=== PATIENT | female | born 1960 | race American Indian/Alaskan Native ===

== ENCOUNTER 2018-09-19 01:58 | Emergency (ER) | payer MEDICAID ==
[2018-09-19 03:01] LABS: Basophils % (Auto) 0.6 % (0.0-1.8); Eosinophils # (Auto) 0.2 K/mm3 (0.0-0.4); Eosinophils % (Auto) 2.2 % (0.0-4.3); Hematocrit 42.2 % (30.3-42.9); Lymphocytes # (Auto) 2.3 K/mm3 (1.2-5.4); Lymphocytes % (Auto) 31.9 % (13.4-35.0); Mean Corpuscular HGB Conc 33 % (30-34); Mean Corpuscular Volume 83 fl (79-97); Monocytes # (Auto) 0.7 K/mm3 (0.0-0.8); Monocytes % (Auto) 9.3 % (0.0-7.3); Platelet Count 197 K/mm3 (140-440); Red Blood Count 5.08 M/mm3 (3.65-5.03)
[2018-09-19 03:16] LABS: Alanine Aminotransferase 25 units/L (7-56); Albumin 4.1 g/dL (3.9-5); BUN/Creatinine Ratio 24; Blood Urea Nitrogen 22 mg/dL (7-17); Calcium 9.7 mg/dL (8.4-10.2); Hemolysis Index 35
[2018-09-19 05:30] LABS: Bilirubin,Urine NEG (Negative); Blood,Urine SM (Negative); Color,Urine Yellow (Yellow); Urobilinogen,Urine < 2.0 mg/dL (<2.0)
[2018-09-19 05:31] LABS: Protein,Urine >500 mg/dL (Negative)
--- NOTE | 2018-09-19 06:09 | Cat Scan Report ---
CT of the abdomen and pelvis with contrast INDICATION: Right lower quadrant pain COMPARISON: None FINDINGS: There is slight basilar atelectasis. The liver, spleen, pancreas and right adrenal gland ar e normal. A 2 cm nodule in the left adrenal gland is probably a nonfunctioning adenoma. The right kid juanjose is normal but hypertrophied. The left kidney is atrophic although does function. Lower pole low d ensities on the left may be cysts. No definite gallbladder or biliary tree abnormality. No fluid or a denopathy in the upper abdomen. CT of the pelvis shows moderate sigmoid diverticulosis without diverticulitis. No uterine or adnexal masses. Appendix is seen and is normal. No hernia or bowel obstruction. No pelvic fluid or adenopathy . No significant skeletal lesion.. IMPRESSION: 1. No right lower quadrant abnormality. 2. Atrophic left kidney with left adrenal nodule. Automated exposure control was utilized to diminish radiation dose. Signer Name: Zev Gonzalez MD Signed: 09/19/2018 6:05 AM Workstation Name: [id number]
--- NOTE | 2018-09-19 06:27 | Emergency Department Report ---
HPI - General Chief Complaint: Abdominal Pain Time Seen by Provider: 09/19/18 06:03 - HPI HPI: 57-year-old -[place] female presents to the emergency department with the complaint of a few days of some right lower quadrant and right middle abdominal pain that she describes as a soreness. There is no radiation. It is associated with some nausea without vomiting. She denies any fever, dysuria, vaginal bleeding or discharge, urinary retention, diarrhea or constipation. She took some Pepto-Bismol 2 days ago and then took some Tylenol last night which did improve the pain slightly. She has a past medical history of rheumatoid arthritis, hypertension and gout. Her primary care physician is Dr. Delphine Salinas and she has an appointment in one week for a physical exam. No recent travel or sick contacts at home. ED Past Medical Hx - Past Medical History Previous Medical History?: Yes Hx Hypertension: Yes Hx Arthritis: Yes (RA) Additional medical history: Gout - Surgical History Past Surgical History?: Yes Additional Surgical History: C section x 2 - Social History Smoking Status: Never Smoker Substance Use Type: None ED Review of Systems ROS: Stated complaint: RIGHT SIDE PAIN Other details as noted in HPI Comment: All other systems reviewed and negative Constitutional: denies: chills, fever Eyes: denies: eye pain, vision change ENT: denies: ear pain, throat pain Respiratory: denies: cough, shortness of breath Cardiovascular: denies: chest pain, palpitations Gastrointestinal: abdominal pain, nausea. denies: vomiting Genitourinary: denies: dysuria, frequency Musculoskeletal: denies: back pain, arthralgia Skin: denies: rash, lesions Neurological: denies: headache, weakness Physical Exam - Physical Exam Vital Signs: Vital Signs 09/19/18 09/19/18 02:14 03:00 Temperature 99.3 F 98.4 F Pulse Rate 104 H 103 H Respiratory 18 21 Rate Blood Pressure 178/91 Blood Pressure 159/72 [Left] O2 Sat by Pulse 97 97 Oximetry Physical Exam: GENERAL: The patient is well-developed well-nourished. HENT: Normocephalic. Atraumatic. Patient has moist mucous membranes. EYES: Extraocular motions are intact. NECK: Supple. Trachea is midline. CHEST/LUNGS: Clear to auscultation. There is no respiratory distress noted. HEART/CARDIOVASCULAR: Regular. There is no tachycardia. There is no murmur. ABDOMEN: Abdomen is soft. Mild right lower quadrant abdominal tenderness to palpation. No guarding. Patient has normal bowel sounds. Morbidly obese habitus. SKIN: Skin is warm and dry. NEURO: The patient is awake, alert, and oriented. The patient is cooperative. The patient has no focal neurologic deficits. The patient has normal speech. MUSCULOSKELETAL: There is no tenderness or deformity. There is no evidence of acute injury. ED Course Vital Signs 09/19/18 09/19/18 02:14 03:00 Temperature 99.3 F 98.4 F Pulse Rate 104 H 103 H Respiratory 18 21 Rate Blood Pressure 178/91 Blood Pressure 159/72 [Left] O2 Sat by Pulse 97 97 Oximetry ED Medical Decision Making - Lab Data Result diagrams: 09/19/18 02:19 09/19/18 02:19 - Radiology Data Radiology results: report reviewed CT of the abdomen and pelvis with contrast INDICATION: Right lower quadrant pain COMPARISON: None FINDINGS: There is slight basilar atelectasis. The liver, spleen, pancreas and right adrenal gland are normal. A 2 cm nodule in the left adrenal gland is probably a nonfunctioning adenoma. The right kidney is normal but hypertrophied. The left kidney is atrophic although does function. Lower pole low densities on the left may be cysts. No definite gallbladder or biliary tree abnormality. No fluid or adenopathy in the upper abdomen. CT of the pelvis shows moderate sigmoid diverticulosis without diverticulitis. No uterine or adnexal masses. Appendix is seen and is normal. No hernia or bowel obstruction. No pelvic fluid or adenopathy. No significant skeletal lesion.. IMPRESSION: 1. No right lower quadrant abnormality. 2. Atrophic left kidney with left adrenal nodule. - Medical Decision Making This patient presents with a few days of some mild right lower quadrant abdominal pain that she describes as a soreness. Her labs have been unremarkable including CBC, metabolic panel, urinalysis. CT scan of the abdomen and pelvis with IV contrast did not show any acute process or etiology of her symptoms. It may be musculoskeletal or secondary to her rheumatoid arthritis. Her vital signs were stable throughout her ED course. She did have some hypertension seen just prior to discharge but she is due to take her morning blood pressure medications, which she will do when she returns home. She has good follow-up with primary care. She will return to the ER with any worsening of her symptoms or any acute distress. - Differential Diagnosis appendicitis, colitis, muscle spasm, constipation Critical Care Time: No Critical care attestation.: If time is entered above; I have spent that time in minutes in the direct care of this critically ill patient, excluding procedure time. ED Disposition Clinical Impression: Abdominal pain Qualifiers: Abdominal location: right lower quadrant Qualified Code(s): R10.31 - Right lower quadrant pain Disposition: DC- TO HOME OR SELFCARE Is pt being admited?: No Condition: Stable Instructions: Abdominal Pain (ED) Additional Instructions: Please follow-up with your primary care physician in the next few days. Return to the emergency Department with any worsening of your symptoms or any acute distress. Referrals: GEORGIANA SALINAS MD [Primary Care Provider] - 2-3 Days Time of Disposition: 06:26
[2018-09-19 07:23] VITALS: BP 164/98
== END 2018-09-19 07:10 | disposition home or self-care (01) ==
LOC: ED 01:58
DX: R10.31 Right lower quadrant pain (principal); R11.2 Nausea with vomiting, unspecified; I10 Essential (primary) hypertension; M06.9 Rheumatoid arthritis, unspecified; M10.9 Gout, unspecified; Z88.6 Allergy status to analgesic agent
CPT/HCPCS: 36415; 74177; 80053; 81001; 83690; 85025; 99284; Q9967